=== PATIENT | male | born 1955 | race African-American/Black ===

== ENCOUNTER 2019-10-29 08:17 | Day surgery (SDC) | payer MEDICAID ==
[~2019-10-29] VITALS: Ht 175.3 cm; Wt 68.0 kg
[2019-10-29 09:16] LABS: BASOPHILS % 0.8 % (0.0-2.0); EOSINOPHILS % 2.2 % (0.0-5.0); HEMATOCRIT. 36.7 % (42.0-52.0); HEMOGLOBIN. 12.4 g/dL (14.0-18.0); LYMPHOCYTES % 26.7 % (20.0-50.0); MEAN CORPUSCULAR VOLUME 97.6 fL (80.0-94.0); MEAN PLATELET VOLUME 9.2 fl (7.4-10.4); MONOCYTES % 11.1 % (2.0-8.0); NEUTROPHILS % 59.2 % (40.0-76.0); PLATELET 130 x1000/uL (130-400); RED BLOOD CELL COUNT 3.77 mill/uL (4.7-6.1); RED CELL DISTRIBUTION WIDTH 13.3 % (11.6-14.6)
[2019-10-29 09:23] LABS: CHLORIDE 105 mEq/L (98-107)
[2019-10-29 09:29] LABS: INR 1.2; PARTIAL THROMBOPLASTIN TIME 30.2 sec (23.4-31.0); PROTHROMBIN TIME 12.3 sec (9.6-11.0)
[2019-10-29] MEDS ORDERED: MIDAZOLAM HCL 5 MG/5 ML VIAL ONE (10:24)
[2019-10-29] MEDS ORDERED: SUCCINYLCHOLINE CHLORIDE 200MG/10ML IV ONE (10:24)
[2019-10-29] MEDS ORDERED: PROPOFOL 200MG/20ML VIAL IV ONE (10:24)
[2019-10-29] MEDS ORDERED: SODIUM CHLORIDE 0.9% 1,000 ML IV ONE (11:04)
[2019-10-29] MEDS ORDERED: ONDANSETRON HCL 4MG/2ML INJ IV PRN (11:15)
[2019-10-29] MEDS ORDERED: PROP10TA10 PO (12:03)
[2019-10-29] MEDS ORDERED: HYDR25TA PO (12:03)
[2019-10-29] MEDS ORDERED: MULT-1203 PO (12:03)
[2019-10-29] MEDS ORDERED: CLOT15CR5 TP (12:03)
[2019-10-29] MEDS ORDERED: METF-414 PO (12:03)
[2019-10-29] MEDS ORDERED: ASPI-1497 PO (12:03)
[2019-10-29] MEDS ORDERED: ATEN-42 PO (12:03)
[2019-10-29] MEDS ORDERED: POTASSIUM CHLORIDE 20MEQ/PACKET PO NR (12:15)
[2019-10-29] MEDS: POTASSIUM CHLORIDE 20MEQ TABLET SR PO NR (12:22)
== END 2019-10-29 14:00 | disposition home or self-care (01) ==
LOC: OR 08:17
PROVIDERS: ATTEND Internal Medicine Gastroenterology
DX: K70.30 Alcoholic cirrhosis of liver without ascites (principal); I85.10 Secondary esophageal varices without bleeding; K31.89 Other diseases of stomach and duodenum; K29.50 Unspecified chronic gastritis without bleeding; I10 Essential (primary) hypertension; E11.9 Type 2 diabetes mellitus without complications; K44.9 Diaphragmatic hernia without obstruction or gangrene; F10.10 Alcohol abuse, uncomplicated; Z79.84 Long term (current) use of oral hypoglycemic drugs; Z79.899 Other long term (current) drug therapy; Z98.890 Other specified postprocedural states; Z79.82 Long term (current) use of aspirin
CPT/HCPCS: 36415; 43239; 43244; 80048; 85025; 85610; 85730; 88305; 93005; J0330; J2250; J2405; J2704; 88312; 88313

== ENCOUNTER → 2020-05-16 | Outpatient (CLI) | payer MEDICAID ==
[~2020-05-16] MED LIST: ASPI-1497 PO; ATEN-42 PO; CLOT15CR5 TP; HYDR25TA PO; METF-414 PO; MULT-1203 PO; PROP10TA10 PO
== END | disposition home or self-care (01) ==
LOC: LAB 07:30
PROVIDERS: ATTEND Internal Medicine Gastroenterology
DX: Z01.812 Encounter for preprocedural laboratory examination (principal); Z20.828 Contact with and (suspected) exposure to other viral communicable diseases
CPT/HCPCS: C9803; U0003

== ENCOUNTER → 2020-05-19 | Day surgery (SDC) | payer MEDICAID ==
[~2020-05-19] VITALS: Ht 175.3 cm; Wt 69.4 kg
[~2020-05-19] MED LIST changes: +LACTATED RINGERS 1,000 ML IV SCH; +MIDAZOLAM HCL 5 MG/5 ML VIAL ONE; +PROPOFOL 200MG/20ML VIAL IV ONE; +SUCCINYLCHOLINE CHLORIDE 200MG/10ML IV ONE
[2020-05-19 09:40] LABS: BASOPHILS % 1.2 % (0.0-2.0); HEMATOCRIT. 32.4 % (42.0-52.0); HEMOGLOBIN. 11.3 g/dL (14.0-18.0); LYMPHOCYTES % 19.4 % (20.0-50.0); MEAN CORPUSCULAR HEMOGLOBIN 34.7 pg (28.0-32.0); MEAN CORPUSCULAR VOLUME 100.1 fL (80.0-94.0); MEAN PLATELET VOLUME 9.7 fl (7.4-10.4); MONOCYTES % 12.1 % (2.0-8.0); NEUTROPHILS % 63.3 % (40.0-76.0); PLATELET 134 x1000/uL (130-400); RED BLOOD CELL COUNT 3.24 mill/uL (4.7-6.1); RED CELL DISTRIBUTION WIDTH 13.3 % (11.6-14.6)
[2020-05-19 09:49] LABS: CHLORIDE 106 mEq/L (98-107)
[2020-05-19 09:51] LABS: INR 1.4; PARTIAL THROMBOPLASTIN TIME 33.1 sec (23.4-31.0); PROTHROMBIN TIME 14.5 sec (9.6-11.0)
== END | disposition home or self-care (01) ==
LOC: OR 08:13
PROVIDERS: ATTEND Internal Medicine Gastroenterology
DX: I85.00 Esophageal varices without bleeding (principal); K70.30 Alcoholic cirrhosis of liver without ascites; K44.9 Diaphragmatic hernia without obstruction or gangrene; I10 Essential (primary) hypertension; E11.9 Type 2 diabetes mellitus without complications; K31.9 Disease of stomach and duodenum, unspecified; F10.10 Alcohol abuse, uncomplicated; Z79.84 Long term (current) use of oral hypoglycemic drugs; Z79.899 Other long term (current) drug therapy; Z98.890 Other specified postprocedural states; Z79.82 Long term (current) use of aspirin
CPT/HCPCS: 36415; 43244; 80048; 82962; 85025; 85610; 85730; 93005; J0330; J2250; J2704

== ENCOUNTER → 2020-06-13 | Outpatient (CLI) | payer MEDICAID ==
[~2020-06-13] MED LIST changes: -ATEN-42 PO; -LACTATED RINGERS 1,000 ML IV SCH; -MIDAZOLAM HCL 5 MG/5 ML VIAL ONE; -PROPOFOL 200MG/20ML VIAL IV ONE; -SUCCINYLCHOLINE CHLORIDE 200MG/10ML IV ONE
== END | disposition home or self-care (01) ==
LOC: LAB 14:48
PROVIDERS: ATTEND Internal Medicine Gastroenterology
DX: Z01.812 Encounter for preprocedural laboratory examination (principal); Z20.828 Contact with and (suspected) exposure to other viral communicable diseases
CPT/HCPCS: C9803; U0003

== ENCOUNTER → 2020-08-31 | Outpatient (CLI) | payer MEDICAID ==
[~2020-08-31] MED LIST changes: -HYDR25TA PO; -PROP10TA10 PO
== END | disposition home or self-care (01) ==
LOC: LAB 09:47
PROVIDERS: ATTEND Internal Medicine Gastroenterology
DX: Z01.812 Encounter for preprocedural laboratory examination (principal); Z20.828 Contact with and (suspected) exposure to other viral communicable diseases
CPT/HCPCS: 87426

== ENCOUNTER → 2020-09-08 | Day surgery (SDC) | payer MEDICAID ==
[~2020-09-08] VITALS: Ht 175.3 cm; Wt 69.9 kg
[~2020-09-08] MED LIST changes: +FURO-152 PO; +HYDRALAZINE 20MG/ML VIAL IV NR; +HYDROMORPHONE HCL/PF 2MG/ML CPJ IV PRN; +LABETALOL 5MG/ML SYR 20 MG/4 ML SYRINGE IV PRN; +LACTATED RINGERS 1,000 ML IV SCH; +LIDOCAINE HCL/PF 1% 10 MG/ML 5ML VIAL ONE; +MAGN400C PO; +MEPERIDINE HCL/PF 25MG/ML CPJ IV PRN; +ONDANSETRON HCL 4MG/2ML INJ IV PRN; +PROP10TA10 PO; +PROPOFOL 200MG/20ML VIAL IV ONE; +SPIR50TA5 PO
[2020-09-08 10:07] LABS: BASOPHILS % 1.2 % (0.0-2.0); EOSINOPHILS % 3.5 % (0.0-5.0); HEMATOCRIT. 34.5 % (42.0-52.0); HEMOGLOBIN. 11.7 g/dL (14.0-18.0); LYMPHOCYTES % 16.2 % (20.0-50.0); MEAN CORPUSCULAR HEMOGLOBIN 33.1 pg (28.0-32.0); MEAN CORPUSCULAR VOLUME 97.6 fL (80.0-94.0); MEAN PLATELET VOLUME 8.4 fl (7.4-10.4); MONOCYTES % 10.4 % (2.0-8.0); NEUTROPHILS % 68.7 % (40.0-76.0); PLATELET 165 x1000/uL (130-400); RED BLOOD CELL COUNT 3.53 mill/uL (4.7-6.1); RED CELL DISTRIBUTION WIDTH 13.7 % (11.6-14.6)
[2020-09-08 10:26] LABS: CHLORIDE 107 mEq/L (98-107)
[2020-09-08 10:28] LABS: INR 1.3; PARTIAL THROMBOPLASTIN TIME 34.2 sec (23.4-31.0); PROTHROMBIN TIME 13.5 sec (9.6-11.0)
== END | disposition home or self-care (01) ==
LOC: OR 08:37
PROVIDERS: ATTEND Internal Medicine Gastroenterology
DX: I85.00 Esophageal varices without bleeding (principal); K70.30 Alcoholic cirrhosis of liver without ascites; K76.6 Portal hypertension; K44.9 Diaphragmatic hernia without obstruction or gangrene; K29.50 Unspecified chronic gastritis without bleeding; E11.9 Type 2 diabetes mellitus without complications; K31.89 Other diseases of stomach and duodenum; D64.9 Anemia, unspecified; Z79.82 Long term (current) use of aspirin; Z79.84 Long term (current) use of oral hypoglycemic drugs; Z79.899 Other long term (current) drug therapy; Z98.890 Other specified postprocedural states; Z82.49 Family history of ischemic heart disease and other diseases of the circulatory system
CPT/HCPCS: 36415; 43239; 43244; 80048; 82962; 85025; 85610; 85730; 93005; J0360; J2704; J3490; 88305

== ENCOUNTER → 2020-09-08 | Outpatient (CLI) | payer MEDICAID ==
[~2020-09-08] MED LIST changes: -HYDRALAZINE 20MG/ML VIAL IV NR; -HYDROMORPHONE HCL/PF 2MG/ML CPJ IV PRN; -LABETALOL 5MG/ML SYR 20 MG/4 ML SYRINGE IV PRN; -LACTATED RINGERS 1,000 ML IV SCH; -LIDOCAINE HCL/PF 1% 10 MG/ML 5ML VIAL ONE; -MEPERIDINE HCL/PF 25MG/ML CPJ IV PRN; -ONDANSETRON HCL 4MG/2ML INJ IV PRN; -PROPOFOL 200MG/20ML VIAL IV ONE
== END | disposition home or self-care (01) ==
LOC: LAB 07:37
PROVIDERS: ATTEND Internal Medicine Gastroenterology
DX: Z01.812 Encounter for preprocedural laboratory examination (principal); Z20.828 Contact with and (suspected) exposure to other viral communicable diseases
CPT/HCPCS: 87426

== ENCOUNTER → 2020-12-14 | Outpatient (CLI) | payer MEDICAID ==
[~2020-12-14] MED LIST changes: +CLOT21CR VG; +LACT10SO3 MT
== END | disposition home or self-care (01) ==
LOC: LAB 08:59
PROVIDERS: ATTEND Internal Medicine Gastroenterology
DX: Z01.812 Encounter for preprocedural laboratory examination (principal); Z20.822 Contact with and (suspected) exposure to COVID-19
CPT/HCPCS: 87426

== ENCOUNTER → 2020-12-15 | Day surgery (SDC) | payer MEDICAID ==
[~2020-12-15] VITALS: Ht 175.3 cm; Wt 69.9 kg
[~2020-12-15] MED LIST changes: +HYDROMORPHONE HCL/PF 2MG/ML CPJ IV PRN; +MEPERIDINE HCL/PF 25MG/ML CPJ IV PRN; +MORPHINE SULFATE 2 MG/ML CPJ (NOT FOR IM USE) IV PRN; +ONDANSETRON HCL 4MG/2ML INJ IV PRN; +PROPOFOL 200MG/20ML VIAL IV ONE; +SODIUM CHLORIDE 0.9% 1,000 ML IV ONE
== END | disposition home or self-care (01) ==
LOC: OR 10:21
PROVIDERS: ATTEND Internal Medicine Gastroenterology
DX: I85.00 Esophageal varices without bleeding (principal); K70.30 Alcoholic cirrhosis of liver without ascites; K44.9 Diaphragmatic hernia without obstruction or gangrene; K29.60 Other gastritis without bleeding; I10 Essential (primary) hypertension; E11.9 Type 2 diabetes mellitus without complications; K31.89 Other diseases of stomach and duodenum; Z79.899 Other long term (current) drug therapy; Z98.890 Other specified postprocedural states; Z79.82 Long term (current) use of aspirin; Z79.84 Long term (current) use of oral hypoglycemic drugs; Z82.49 Family history of ischemic heart disease and other diseases of the circulatory system
CPT/HCPCS: 43244; 82962; 93005; J2704

== ENCOUNTER 2022-12-04 08:37 | Inpatient (IN) | payer MEDICARE, MEDICAID ==
[~2022-12-04] VITALS: Ht 175.3 cm; Wt 46.5 kg
[~2022-12-04 08:37] MED LIST changes: -CLOT21CR VG; -HYDROMORPHONE HCL/PF 2MG/ML CPJ IV PRN; -MEPERIDINE HCL/PF 25MG/ML CPJ IV PRN; -MORPHINE SULFATE 2 MG/ML CPJ (NOT FOR IM USE) IV PRN; -ONDANSETRON HCL 4MG/2ML INJ IV PRN; -PROPOFOL 200MG/20ML VIAL IV ONE; -SODIUM CHLORIDE 0.9% 1,000 ML IV ONE
[2022-12-04] MEDS ORDERED: SODIUM CHLORIDE 0.9% 1,000 ML IV ONE (09:15)
[2022-12-04 10:35] LABS: HEMATOCRIT. 30.3 % (42.0-52.0); HEMOGLOBIN. 9.7 g/dL (14.0-18.0); MEAN CORPUSCULAR HEMOGLOBIN 30.4 pg (28.0-32.0); MEAN CORPUSCULAR VOLUME 94.5 fL (80.0-94.0); PLATELET 590 x1000/uL (130-400)
[2022-12-04 10:37] LABS: CHLORIDE 99 mEq/L (98-107)
[2022-12-04 10:56] LABS: INR 1.2; PARTIAL THROMBOPLASTIN TIME 40.7 sec (23.4-31.0); PROTHROMBIN TIME 12.4 sec (9.6-11.0)
[2022-12-04 11:37] LABS: CLARITY URINE CLOUDY (CLEAR); COLOR URINE YELLOW (YELLOW); KETONES URINE TRACE (NEGATIVE); LEUKOCYTE ESTERASE URINE 2+ (NEGATIVE); NITRITE URINE NEGATIVE (NEGATIVE); OCCULT BLOOD URINE 2+ (NEGATIVE); PROTEIN URINE 1+ (NEGATIVE); SPECIFIC GRAVITY URINE 1.021 (1.005-1.030); UROBILINOGEN URINE 0.2 E.U./dL (0.2-1.0)
[2022-12-04 11:53] LABS: PLATELET ESTIMATE INCREASED
[2022-12-04] MEDS ORDERED: CEFTRIAXONE 1GM PREMIX 50 ML IV ONE (13:00)
[2022-12-04] MEDS ORDERED: GUAIFENESIN 200MG/10ML SUGAR FREE UDC PO PRN (16:00)
[2022-12-04] MEDS ORDERED: IPRATROPIUM/ALBUTEROL 0.5-3(2.5)MG/3ML NEB NEB PRN (16:00)
[2022-12-04] MEDS ORDERED: SODIUM POLYSTYRENE SULFONATE 15 G/60 ML BOT PO NR (16:00)
[2022-12-04] MEDS ORDERED: MAGNESIUM/ALUMINUM HYDROXIDE/SIMETHICONE 30ML UDC PO PRN (16:00)
[2022-12-04] MEDS ORDERED: ONDANSETRON HCL 4MG/2ML INJ IV PRN (16:00)
[2022-12-04] MEDS ORDERED: PANTOPRAZOLE 80 MG in SODIUM CHLORIDE 0.9% 100 ML IV SCH ×2 (16:00→16:30)
[2022-12-04] MEDS ORDERED: DOCUSATE SODIUM 100MG CAPSULE PO PRN (16:00)
[2022-12-04] MEDS ORDERED: CLONIDINE 0.1MG TABLET PO PRN (16:00)
[2022-12-04] MEDS ORDERED: LEVOFLOXACIN 500MG PREMIX 100 ML IV SCH (16:00)
[2022-12-04] MEDS ORDERED: ACETAMINOPHEN 325MG TABLET PO PRN ×2 (16:00)
[2022-12-04] MEDS ORDERED: DEXTROSE 50% WATER 50ML SYRINGE IV PRN (16:00)
[2022-12-04 16:40] VITALS: BP 141/91
[2022-12-04] MEDS: BLOOD SUGAR DIAGNOSTIC STRIP TEST SCH ×2 (16:54→20:52)
[2022-12-04] MEDS ORDERED: DEXT 5%/0.9% NACL 1,000 ML IV ONE (18:00)
[2022-12-04] MEDS: DEXT 5%/LACTATED RINGERS 1,000 ML IV SCH (18:20)
[2022-12-04] MEDS: INSULIN LISPRO 100 UNITS/ML SUBCUT SCH ×2 (18:23→20:51)
[2022-12-04] MEDS: SULFAMETHOXAZOLE/TRIMETHOPRIM 800/160MG TABLET PO SCH (18:24)
[2022-12-04] MEDS ORDERED: TACR5CAP PO (18:40)
[2022-12-04] MEDS ORDERED: PANT40TA51 PO (18:40)
[2022-12-04] MEDS ORDERED: AMIO100T4 PO (18:40)
[2022-12-04] MEDS ORDERED: APIX5TAB PO (18:40)
[2022-12-04] MEDS ORDERED: DILT60TA35 PO (18:40)
[2022-12-04] MEDS ORDERED: TAMS-11 PO (18:40)
[2022-12-04] MEDS ORDERED: TRAZ-251 PO (18:40)
[2022-12-04] MEDS ORDERED: ERGO80009 PO (18:40)
[2022-12-04] MEDS ORDERED: TACR1CAP PO (18:40)
[2022-12-04] MEDS ORDERED: PRED5TAB PO (18:40)
[2022-12-04] MEDS ORDERED: OCTREOTIDE 1,000 MCG in SODIUM CHLORIDE 0.9% 98 ML IV SCH (20:00)
[2022-12-04 20:43] VITALS: BP 110/73
[2022-12-04] MEDS: PANTOPRAZOLE SODIUM 40 MG/VIAL IV SCH (20:50)
[2022-12-04] MEDS: MYCOPHENOLATE MOFETIL 500MG TABLET PO SCH (20:50)
[2022-12-04] MEDS ORDERED: ZOLPIDEM TARTRATE 5MG TABLET PO PRN (21:00)
[2022-12-04 21:59] LABS: ETHANOL BLOOD < 10 mg/dL; HDL CHOLESTEROL 38 mg/dL (40-59); LDL CHOLESTEROL 61 mg/dL (5-100); T4 FREE 0.96 ng/dL (0.76-1.46); TOTAL IRON BINDING CAPACITY 143 ug/dL (250-450)
[2022-12-04] MEDS: OCTREOTIDE 1,000 MCG in SODIUM CHLORIDE 0.9% 98 ML IV SCH (22:18)
[2022-12-04] MEDS: TACROLIMUS 5MG CAPSULE PO SCH (22:18)
[2022-12-04 22:27] LABS: VITAMIN B12 SERUM > 2000.0 pg/mL (211-911)
[2022-12-04] MEDS ORDERED: SODIUM CHLORIDE 0.9% 1000ML BAG (SEPSIS BOLUS) IV NR (23:00)
[2022-12-05] VITALS (38 sets, daily range): BP systolic 90–131; BP diastolic 61–78
[2022-12-05] MEDS: BLOOD SUGAR DIAGNOSTIC STRIP TEST SCH ×4 (06:41→20:51)
[2022-12-05 07:41] LABS: HEMATOCRIT. 21.3 % (42.0-52.0); HEMOGLOBIN. 7.1 g/dL (14.0-18.0); MEAN CORPUSCULAR VOLUME 92.8 fL (80.0-94.0); PLATELET 418 x1000/uL (130-400); RED CELL DISTRIBUTION WIDTH 14.8 % (11.6-14.6)
[2022-12-05 07:47] LABS: INR 1.2; PROTHROMBIN TIME 12.8 sec (9.6-11.0)
[2022-12-05] MEDS: PANTOPRAZOLE SODIUM 40 MG/VIAL IV SCH ×2 (08:08→20:51)
[2022-12-05] MEDS: MYCOPHENOLATE MOFETIL 500MG TABLET PO SCH ×2 (08:08→21:38)
[2022-12-05] MEDS: PREDNISONE 5MG TABLET PO SCH (08:08)
[2022-12-05] MEDS: DEXT 5%/LACTATED RINGERS 1,000 ML IV SCH ×2 (08:09→18:50)
[2022-12-05] MEDS: TACROLIMUS 1MG CAPSULE PO SCH (08:09)
[2022-12-05] MEDS: INSULIN LISPRO 100 UNITS/ML SUBCUT SCH ×4 (08:09→20:51)
[2022-12-05 08:18] LABS: CHLORIDE 106 mEq/L (98-107)
[2022-12-05 08:31] LABS: PHOSPHORUS 2.8 mg/dL (2.5-4.9)
[2022-12-05] MEDS ORDERED: VALGANCICLOVIR HYDROCHLORIDE 450MG TABLET PO SCH (09:00)
[2022-12-05 09:04] LABS: PLATELET ESTIMATE INCREASED
[2022-12-05] MEDS: MENTHOL/LANOLIN/CALAMINE/ZN OX OINT 71GM TOP SCH ×2 (12:20→18:50)
[2022-12-05] MEDS ORDERED: AMIODARONE HCL 200 MG TABLET PO SCH (12:45)
[2022-12-05] MEDS ORDERED: DILTIAZEM HCL 120MG CAPSULE ER 24HR PO SCH (13:00)
[2022-12-05] MEDS ORDERED: CEFTRIAXONE 1,000 MG in DEXTROSE 5% WATER 50 ML IV SCH (13:00)
[2022-12-05] MEDS ORDERED: METOPROLOL TARTRATE 5MG/5ML VIAL IV PRN (13:00)
[2022-12-05] MEDS ORDERED: IPRATROPIUM BROMIDE (0.02%) 0.5MG/2.5ML NEB HHN PRN (13:00)
[2022-12-05] MEDS ORDERED: ALBUTEROL (0.083%) 2.5MG/3ML NEB HHN PRN (13:00)
[2022-12-05] MEDS ORDERED: SODIUM CHLORIDE 0.9% 250 ML IV SCH (13:10)
[2022-12-05] MEDS ORDERED: DIGOXIN 500MCG/2ML AMP IV PRN (13:15)
[2022-12-05] MEDS ORDERED: SODIUM CHLORIDE 0.9% 500 ML IV NR (13:30)
[2022-12-05] MEDS ORDERED: DIGOXIN 500MCG/2ML AMP IV NR (13:30)
[2022-12-05] MEDS ORDERED: ADENOSINE 3 MG/ML 2ML VIAL IV NR ×3 (13:45→13:50)
[2022-12-05] MEDS ORDERED: DILTIAZEM HCL 60MG TABLET PO SCH (14:00)
[2022-12-05] MEDS ORDERED: DILTIAZEM HCL 30MG TABLET PO SCH (14:00)
[2022-12-05] MEDS ORDERED: LEVOFLOXACIN 500MG PREMIX 100 ML IV SCH (14:00)
[2022-12-05] MEDS ORDERED: AMIODARONE HCL 900 MG in DEXT 5% WATER 482 ML IV PRN (15:30)
[2022-12-05] MEDS ORDERED: AMIODARONE HCL 150 MG in DEXT 5% WATER 100 ML IV NR (15:30)
[2022-12-05] MEDS: OCTREOTIDE 1,000 MCG in SODIUM CHLORIDE 0.9% 98 ML IV SCH (17:00)
[2022-12-05] MEDS ORDERED: ATROPINE SULFATE 1MG/ML VIAL IV PRN (18:30)
[2022-12-05] MEDS ORDERED: DOPAMINE 800MG PREMIX (DOUBLE) 250 ML IV PRN (18:30)
[2022-12-05] MEDS: TACROLIMUS 5MG CAPSULE PO SCH (20:50)
[2022-12-05] MEDS: METRONIDAZOLE 500 MG PREMIX 100 ML IV SCH (20:51)
[2022-12-05 21:10] LABS: FOLIC ACID (FOLATE) SERUM > 20.00 ng/mL (>5.38)
[2022-12-06] VITALS (52 sets, daily range): BP systolic 115–178; BP diastolic 66–117
[2022-12-06] MEDS ORDERED: ATROPINE SULFATE 1MG/10ML SYR IV PRN (04:32)
[2022-12-06 05:37] LABS: HEMATOCRIT. 24.6 % (42.0-52.0); HEMOGLOBIN. 8.4 g/dL (14.0-18.0); MEAN CORPUSCULAR HEMOGLOBIN 30.3 pg (28.0-32.0); MEAN CORPUSCULAR VOLUME 88.1 fL (80.0-94.0); MEAN PLATELET VOLUME 6.9 fl (7.4-10.4); PLATELET 316 x1000/uL (130-400); RED BLOOD CELL COUNT 2.79 mill/uL (4.7-6.1); RED CELL DISTRIBUTION WIDTH 16.4 % (11.6-14.6)
[2022-12-06 05:46] LABS: CHLORIDE 108 mEq/L (98-107)
[2022-12-06] MEDS: OCTREOTIDE 1,000 MCG in SODIUM CHLORIDE 0.9% 98 ML IV SCH (06:47)
[2022-12-06] MEDS: BLOOD SUGAR DIAGNOSTIC STRIP TEST SCH ×4 (07:50→21:04)
[2022-12-06] MEDS ORDERED: LIDOCAINE HCL 1% 30ML VIAL (10MG/ML) ONE (07:58)
[2022-12-06] MEDS: INSULIN LISPRO 100 UNITS/ML SUBCUT SCH ×4 (08:20→21:08)
[2022-12-06] MEDS: PANTOPRAZOLE SODIUM 40 MG/VIAL IV SCH ×2 (09:28→20:56)
[2022-12-06] MEDS: METRONIDAZOLE 500 MG PREMIX 100 ML IV SCH ×2 (09:28→20:56)
[2022-12-06] MEDS: CEFEPIME 1,000 MG in DEXTROSE 5% WATER 50 ML IV SCH (09:28)
[2022-12-06] MEDS: TACROLIMUS 1MG CAPSULE PO SCH (09:29)
[2022-12-06] MEDS: MYCOPHENOLATE MOFETIL 500MG TABLET PO SCH ×2 (09:29→20:57)
[2022-12-06] MEDS: DEXT 5%/LACTATED RINGERS 1,000 ML IV SCH ×2 (09:29→21:03)
[2022-12-06] MEDS: PREDNISONE 5MG TABLET PO SCH (09:29)
[2022-12-06] MEDS: MENTHOL/LANOLIN/CALAMINE/ZN OX OINT 71GM TOP SCH ×2 (09:30→18:30)
[2022-12-06 10:28] LABS: PLATELET ESTIMATE NORMAL
[2022-12-06 12:20] LABS: HEMATOCRIT 23.2 % (42.0-52.0); HEMOGLOBIN 7.7 g/dL (14.0-18.0)
[2022-12-06] MEDS: SULFAMETHOXAZOLE/TRIMETHOPRIM 800/160MG TABLET PO SCH (18:29)
[2022-12-06 20:52] LABS: HEMATOCRIT 24.9 % (42.0-52.0); HEMOGLOBIN 8.4 g/dL (14.0-18.0)
[2022-12-06] MEDS: TACROLIMUS 5MG CAPSULE PO SCH (20:56)
[2022-12-07] VITALS (36 sets, daily range): BP systolic 125–174; BP diastolic 74–104
[2022-12-07 01:59] LABS: HEMATOCRIT 23.5 % (42.0-52.0); HEMOGLOBIN 8.2 g/dL (14.0-18.0)
[2022-12-07] MEDS: OCTREOTIDE 1,000 MCG in SODIUM CHLORIDE 0.9% 98 ML IV SCH (03:15)
[2022-12-07 05:39] LABS: HEMOGLOBIN 8.6 g/dL (14.0-18.0)
[2022-12-07] MEDS: BLOOD SUGAR DIAGNOSTIC STRIP TEST SCH ×4 (07:26→21:00)
[2022-12-07] MEDS: INSULIN LISPRO 100 UNITS/ML SUBCUT SCH ×4 (08:20→21:18)
[2022-12-07] MEDS: MENTHOL/LANOLIN/CALAMINE/ZN OX OINT 71GM TOP SCH ×2 (09:00→17:52)
[2022-12-07] MEDS: MYCOPHENOLATE MOFETIL 500MG TABLET PO SCH ×2 (09:12→21:18)
[2022-12-07] MEDS: TACROLIMUS 1MG CAPSULE PO SCH (09:12)
[2022-12-07] MEDS: PANTOPRAZOLE SODIUM 40 MG/VIAL IV SCH ×2 (09:13→21:18)
[2022-12-07] MEDS: CEFEPIME 1,000 MG in DEXTROSE 5% WATER 50 ML IV SCH (09:13)
[2022-12-07] MEDS: PREDNISONE 5MG TABLET PO SCH (09:14)
[2022-12-07] MEDS: METRONIDAZOLE 500 MG PREMIX 100 ML IV SCH ×2 (09:14→21:17)
[2022-12-07 17:07] LABS: HEMATOCRIT. 28.2 % (42.0-52.0); HEMOGLOBIN. 9.4 g/dL (14.0-18.0); MEAN CORPUSCULAR HEMOGLOBIN 29.4 pg (28.0-32.0); MEAN CORPUSCULAR VOLUME 88.4 fL (80.0-94.0); MEAN PLATELET VOLUME 6.6 fl (7.4-10.4); PLATELET 377 x1000/uL (130-400); RED BLOOD CELL COUNT 3.19 mill/uL (4.7-6.1); RED CELL DISTRIBUTION WIDTH 16.5 % (11.6-14.6)
[2022-12-07 17:15] LABS: CHLORIDE 106 mEq/L (98-107)
[2022-12-07 17:49] LABS: PLATELET ESTIMATE NORMAL
[2022-12-07] MEDS: TACROLIMUS 5MG CAPSULE PO SCH (19:25)
[2022-12-07] MEDS: DEXT 5%/LACTATED RINGERS 1,000 ML IV SCH (19:25)
[2022-12-08] VITALS: BP 135/85
[2022-12-08] MEDS: OCTREOTIDE 1,000 MCG in SODIUM CHLORIDE 0.9% 98 ML IV SCH (02:04)
[2022-12-08 04:00] VITALS: BP 132/48
[2022-12-08 06:27] LABS: HEMATOCRIT. 25.2 % (42.0-52.0); HEMOGLOBIN. 8.4 g/dL (14.0-18.0); MEAN CORPUSCULAR HEMOGLOBIN 29.6 pg (28.0-32.0); MEAN CORPUSCULAR VOLUME 88.1 fL (80.0-94.0); MEAN PLATELET VOLUME 6.8 fl (7.4-10.4); PLATELET 335 x1000/uL (130-400); RED BLOOD CELL COUNT 2.86 mill/uL (4.7-6.1)
[2022-12-08 07:29] LABS: CHLORIDE 106 mEq/L (98-107)
[2022-12-08] MEDS: BLOOD SUGAR DIAGNOSTIC STRIP TEST SCH ×4 (07:29→21:38)
[2022-12-08] MEDS: INSULIN LISPRO 100 UNITS/ML SUBCUT SCH ×4 (07:30→21:21)
[2022-12-08 08:00] VITALS: BP 148/82
[2022-12-08] MEDS: METRONIDAZOLE 500 MG PREMIX 100 ML IV SCH ×2 (09:11→21:20)
[2022-12-08] MEDS: CEFEPIME 1,000 MG in DEXTROSE 5% WATER 50 ML IV SCH (09:11)
[2022-12-08] MEDS: PREDNISONE 5MG TABLET PO SCH (09:14)
[2022-12-08] MEDS: MYCOPHENOLATE MOFETIL 500MG TABLET PO SCH ×2 (09:14→21:19)
[2022-12-08] MEDS: MENTHOL/LANOLIN/CALAMINE/ZN OX OINT 71GM TOP SCH ×2 (09:16→17:17)
[2022-12-08] MEDS: TACROLIMUS 1MG CAPSULE PO SCH (09:16)
[2022-12-08] MEDS: PANTOPRAZOLE SODIUM 40 MG/VIAL IV SCH ×2 (09:16→21:20)
[2022-12-08 10:27] LABS: PLATELET ESTIMATE NORMAL
[2022-12-08 12:00] VITALS: BP 129/81
[2022-12-08 16:00] VITALS: BP 129/79
[2022-12-08] MEDS ORDERED: METOPROLOL TARTRATE 5MG/5ML VIAL IV PRN (16:30)
[2022-12-08 20:00] VITALS: BP 133/90
[2022-12-08] MEDS: TACROLIMUS 5MG CAPSULE PO SCH (21:19)
[2022-12-09] VITALS: BP 143/85
[2022-12-09] MEDS: OCTREOTIDE 1,000 MCG in SODIUM CHLORIDE 0.9% 98 ML IV SCH ×2 (02:04→21:54)
[2022-12-09] MEDS: DEXT 5%/LACTATED RINGERS 1,000 ML IV SCH ×3 (02:04→16:16)
[2022-12-09 02:45] LABS: BASOPHILS % 0.3 % (0.0-2.0); EOSINOPHILS % 0.4 % (0.0-5.0); HEMATOCRIT. 26.3 % (42.0-52.0); HEMOGLOBIN. 8.8 g/dL (14.0-18.0); LYMPHOCYTES % 16.9 % (20.0-50.0); MEAN CORPUSCULAR HEMOGLOBIN 29.4 pg (28.0-32.0); MEAN CORPUSCULAR VOLUME 87.9 fL (80.0-94.0); MEAN PLATELET VOLUME 6.3 fl (7.4-10.4); MONOCYTES % 9.7 % (2.0-8.0); NEUTROPHILS % 72.7 % (40.0-76.0); PLATELET 350 x1000/uL (130-400); RED CELL DISTRIBUTION WIDTH 16.2 % (11.6-14.6)
[2022-12-09 02:53] LABS: CHLORIDE 109 mEq/L (98-107)
[2022-12-09 04:00] VITALS: BP 125/67
[2022-12-09] MEDS: BLOOD SUGAR DIAGNOSTIC STRIP TEST SCH ×4 (07:13→20:59)
[2022-12-09] MEDS: INSULIN LISPRO 100 UNITS/ML SUBCUT SCH ×4 (07:14→20:58)
[2022-12-09 08:10] VITALS: BP 117/89
[2022-12-09] MEDS: METRONIDAZOLE 500 MG PREMIX 100 ML IV SCH ×2 (08:42→20:56)
[2022-12-09] MEDS: PANTOPRAZOLE SODIUM 40 MG/VIAL IV SCH ×2 (08:43→20:57)
[2022-12-09] MEDS: CEFEPIME 1,000 MG in DEXTROSE 5% WATER 50 ML IV SCH (08:43)
[2022-12-09] MEDS: TACROLIMUS 1MG CAPSULE PO SCH (08:44)
[2022-12-09] MEDS: MYCOPHENOLATE MOFETIL 500MG TABLET PO SCH ×2 (08:45→21:52)
[2022-12-09] MEDS: PREDNISONE 5MG TABLET PO SCH (08:45)
[2022-12-09] MEDS: MENTHOL/LANOLIN/CALAMINE/ZN OX OINT 71GM TOP SCH ×2 (08:45→17:38)
[2022-12-09 11:43] VITALS: BP 133/86
[2022-12-09] MEDS ORDERED: SORBITOL 70% SOLN 30ML PO SCH (14:00)
[2022-12-09] MEDS: BISACODYL 5MG TABLET PO SCH ×2 (14:18→17:37)
[2022-12-09] MEDS: METOCLOPRAMIDE HCL 10MG TABLET PO SCH ×2 (14:19→17:37)
[2022-12-09 15:40] VITALS: BP 138/83
[2022-12-09] MEDS: SULFAMETHOXAZOLE/TRIMETHOPRIM 800/160MG TABLET PO SCH (17:37)
[2022-12-09] MEDS: SORBITOL 70% SOLN 30ML PO SCH ×2 (17:38→21:52)
[2022-12-09 20:00] VITALS: BP 125/85
[2022-12-09] MEDS: TACROLIMUS 5MG CAPSULE PO SCH (20:57)
[2022-12-09] MEDS ORDERED: METOCLOPRAMIDE HCL 10MG/2ML VIAL IV NR (21:30)
[2022-12-09] MEDS ORDERED: BISACODYL 5MG TABLET PO NR (21:30)
[2022-12-10] VITALS: BP 98/74
[2022-12-10] MEDS: SODIUM CHLORIDE 0.9% 1,000 ML IV SCH ×2 (02:40→14:57)
[2022-12-10 03:07] LABS: HEMATOCRIT. 37.2 % (42.0-52.0); HEMOGLOBIN. 12.4 g/dL (14.0-18.0); MEAN CORPUSCULAR HEMOGLOBIN 30.1 pg (28.0-32.0); MEAN CORPUSCULAR VOLUME 89.9 fL (80.0-94.0); MEAN PLATELET VOLUME 6.6 fl (7.4-10.4); PLATELET 365 x1000/uL (130-400); RED BLOOD CELL COUNT 4.14 mill/uL (4.7-6.1); RED CELL DISTRIBUTION WIDTH 16.8 % (11.6-14.6)
[2022-12-10 03:16] LABS: INR 1.2; PROTHROMBIN TIME 12.4 sec (9.6-11.0)
[2022-12-10 03:47] LABS: CHLORIDE 112 mEq/L (98-107)
[2022-12-10 04:00] VITALS: BP 136/89
[2022-12-10] MEDS: BLOOD SUGAR DIAGNOSTIC STRIP TEST SCH ×4 (07:40→20:51)
[2022-12-10] MEDS: INSULIN LISPRO 100 UNITS/ML SUBCUT SCH ×4 (08:10→20:51)
[2022-12-10 08:27] VITALS: BP 127/78
[2022-12-10] MEDS: MENTHOL/LANOLIN/CALAMINE/ZN OX OINT 71GM TOP SCH ×2 (09:00→17:25)
[2022-12-10 09:51] LABS: PLATELET ESTIMATE NORMAL
[2022-12-10] MEDS: CEFEPIME 1,000 MG in DEXTROSE 5% WATER 50 ML IV SCH ×2 (09:57→20:50)
[2022-12-10] MEDS: METRONIDAZOLE 500 MG PREMIX 100 ML IV SCH ×2 (09:58→20:51)
[2022-12-10] MEDS: PANTOPRAZOLE SODIUM 40 MG/VIAL IV SCH ×2 (10:07→20:50)
[2022-12-10] MEDS: TACROLIMUS 1MG CAPSULE PO SCH (10:57)
[2022-12-10] MEDS: PREDNISONE 5MG TABLET PO SCH (10:57)
[2022-12-10] MEDS: MYCOPHENOLATE MOFETIL 500MG TABLET PO SCH ×2 (10:57→20:50)
[2022-12-10] MEDS ORDERED: SIMETHICONE 40 MG/0.6 ML 15ML ONE (11:08)
[2022-12-10] MEDS ORDERED: PROPOFOL 200MG/20ML VIAL IV ONE (11:15)
[2022-12-10 15:15] VITALS: BP 144/92
[2022-12-10 20:00] VITALS: BP 113/77
[2022-12-10] MEDS: TACROLIMUS 5MG CAPSULE PO SCH (20:50)
[2022-12-11] VITALS: BP 139/79
[2022-12-11 04:00] VITALS: BP 142/84
[2022-12-11] MEDS: INSULIN LISPRO 100 UNITS/ML SUBCUT SCH ×4 (05:50→22:12)
[2022-12-11] MEDS: BLOOD SUGAR DIAGNOSTIC STRIP TEST SCH ×4 (05:50→21:00)
[2022-12-11 06:02] LABS: HEMATOCRIT. 25.4 % (42.0-52.0); HEMOGLOBIN. 8.5 g/dL (14.0-18.0); MEAN CORPUSCULAR HEMOGLOBIN 29.8 pg (28.0-32.0); MEAN CORPUSCULAR VOLUME 88.8 fL (80.0-94.0); MEAN PLATELET VOLUME 6.6 fl (7.4-10.4); PLATELET 288 x1000/uL (130-400); RED BLOOD CELL COUNT 2.86 mill/uL (4.7-6.1); RED CELL DISTRIBUTION WIDTH 16.6 % (11.6-14.6)
[2022-12-11 07:34] LABS: CHLORIDE 117 mEq/L (98-107)
[2022-12-11 08:00] VITALS: BP 150/88
[2022-12-11] MEDS: TACROLIMUS 1MG CAPSULE PO SCH (08:10)
[2022-12-11] MEDS: MYCOPHENOLATE MOFETIL 500MG TABLET PO SCH ×2 (08:10→22:11)
[2022-12-11] MEDS: PREDNISONE 5MG TABLET PO SCH (08:10)
[2022-12-11] MEDS: PANTOPRAZOLE SODIUM 40 MG/VIAL IV SCH ×2 (08:11→22:12)
[2022-12-11] MEDS: MENTHOL/LANOLIN/CALAMINE/ZN OX OINT 71GM TOP SCH ×2 (08:11→17:00)
[2022-12-11] MEDS: CEFEPIME 1,000 MG in DEXTROSE 5% WATER 50 ML IV SCH ×2 (08:35→22:12)
[2022-12-11 09:21] LABS: PLATELET ESTIMATE NORMAL
[2022-12-11 12:00] VITALS: BP 147/81
[2022-12-11 16:00] VITALS: BP 145/88
[2022-12-11 20:00] VITALS: BP 144/79
[2022-12-11] MEDS: TACROLIMUS 5MG CAPSULE PO SCH (22:12)
[2022-12-11] MEDS: ASPIRIN 81MG TABLET PO SCH (22:13)
[2022-12-12] VITALS: BP 136/85
[2022-12-12 04:00] VITALS: BP 153/82
[2022-12-12] MEDS: BLOOD SUGAR DIAGNOSTIC STRIP TEST SCH ×2 (06:23→12:40)
[2022-12-12] MEDS: INSULIN LISPRO 100 UNITS/ML SUBCUT SCH ×2 (06:23→13:10)
[2022-12-12 07:52] VITALS: BP 144/83
[2022-12-12] MEDS: ASPIRIN 81MG TABLET PO SCH (08:48)
[2022-12-12] MEDS: PREDNISONE 5MG TABLET PO SCH (08:48)
[2022-12-12] MEDS: TACROLIMUS 1MG CAPSULE PO SCH (08:48)
[2022-12-12] MEDS: MYCOPHENOLATE MOFETIL 500MG TABLET PO SCH (08:48)
[2022-12-12] MEDS: MENTHOL/LANOLIN/CALAMINE/ZN OX OINT 71GM TOP SCH (08:49)
[2022-12-12] MEDS: PANTOPRAZOLE SODIUM 40 MG/VIAL IV SCH (08:49)
[2022-12-12] MEDS: CEFEPIME 1,000 MG in DEXTROSE 5% WATER 50 ML IV SCH (08:49)
[2022-12-12 10:06] LABS: BASOPHILS % 0.4 % (0.0-2.0); EOSINOPHILS % 0.4 % (0.0-5.0); HEMATOCRIT. 30.3 % (42.0-52.0); HEMOGLOBIN. 10.3 g/dL (14.0-18.0); LYMPHOCYTES % 10.3 % (20.0-50.0); MEAN CORPUSCULAR VOLUME 88.4 fL (80.0-94.0); MEAN PLATELET VOLUME 6.8 fl (7.4-10.4); MONOCYTES % 7.8 % (2.0-8.0); NEUTROPHILS % 81.1 % (40.0-76.0); PLATELET 314 x1000/uL (130-400); RED BLOOD CELL COUNT 3.42 mill/uL (4.7-6.1); RED CELL DISTRIBUTION WIDTH 16.6 % (11.6-14.6)
[2022-12-12 10:33] LABS: CHLORIDE 109 mEq/L (98-107)
[2022-12-12] MEDS ORDERED: SUCR1TAB30 MT (10:41)
[2022-12-12] MEDS ORDERED: DIGO250A8 IV (10:41)
[2022-12-12] MEDS ORDERED: PANT40TA51 PO (10:41)
[2022-12-12 11:42] VITALS: BP 136/85
[2022-12-12 15:52] VITALS: BP 144/78
[2022-12-12 16:05] VITALS: BP 147/87
[2022-12-12] MEDS ORDERED: CEFEPIME 1GM PREMIX 50 ML IV SCH (21:00)
[2022-12-13] MEDS ORDERED: LIDOCAINE HCL 4% CREAM 76GM TUBE TP NR (08:00)
== END 2022-12-12 16:15 | disposition home or self-care (01) | DRG 871 ==
LOC: ER 08:56 → EDBEDREQ 13:09 → EDBEDREQTM 13:09 → SUPCPDRO 15:47 → 7WST 15:54 → CVICU 12-05 13:52 → 7WST 12-07 14:23
PROVIDERS: ADMIT Internal Medicine; ATTEND Internal Medicine
PROC: 30233N1 Transfusion of Nonautologous Red Blood Cells into Peripheral Vein, Percutaneous Approach (ICD-10-PCS; principal; 2022-12-05)
PROC: 02HV33Z Insertion of Infusion Device into Superior Vena Cava, Percutaneous Approach (ICD-10-PCS; 2022-12-06)
PROC: B548ZZA Ultrasonography of Superior Vena Cava, Guidance (ICD-10-PCS; 2022-12-06)
PROC: 0DB78ZX Excision of Stomach, Pylorus, Via Natural or Artificial Opening Endoscopic, Diagnostic (ICD-10-PCS; 2022-12-10)
PROC: 0DJD8ZZ Inspection of Lower Intestinal Tract, Via Natural or Artificial Opening Endoscopic (ICD-10-PCS; 2022-12-10)
DX: A41.9 Sepsis, unspecified organism (principal); G92.8 Other toxic encephalopathy; R65.21 Severe sepsis with septic shock; R57.8 Other shock; K29.61 Other gastritis with bleeding; I85.01 Esophageal varices with bleeding; E44.0 Moderate protein-calorie malnutrition; R64 Cachexia; E87.1 Hypo-osmolality and hyponatremia; D62 Acute posthemorrhagic anemia; E87.20 Acidosis, unspecified; N39.0 Urinary tract infection, site not specified; I47.1 Supraventricular tachycardia; K76.6 Portal hypertension; Z94.0 Kidney transplant status; Z94.4 Liver transplant status; E11.65 Type 2 diabetes mellitus with hyperglycemia; E87.5 Hyperkalemia; Z20.822 Contact with and (suspected) exposure to COVID-19; I10 Essential (primary) hypertension; B96.89 Other specified bacterial agents as the cause of diseases classified elsewhere; K70.30 Alcoholic cirrhosis of liver without ascites; M81.0 Age-related osteoporosis without current pathological fracture; B96.5 Pseudomonas (aeruginosa) (mallei) (pseudomallei) as the cause of diseases classified elsewhere; E86.1 Hypovolemia; K22.2 Esophageal obstruction; I48.0 Paroxysmal atrial fibrillation; I86.4 Gastric varices; F10.20 Alcohol dependence, uncomplicated; K31.9 Disease of stomach and duodenum, unspecified; K57.90 Diverticulosis of intestine, part unspecified, without perforation or abscess without bleeding; Z79.01 Long term (current) use of anticoagulants; Z79.4 Long term (current) use of insulin
CPT/HCPCS: 36415; 36573; 71045; 74176; 80048; 80053; 80061; 80197; 80320; 81003; 82040; 82533; 82607; 82728; 82746; 82962; 83036; 83540; 83550; 83605; 83735; 84100; 84134; 84145; 84439; 84443; 85014; 85018; 85025; 86850; 86900; 86920; 87077; 87186; 87426; 88305; 93005; 93306; 93970; 99285; A6261; C1725; C9113; J0153; J0282; J0461; J0692; J0696; J1160; J1815; J1956; J2354; J2405; J2704; J2765; J3490; J7030; J7050; J7060; J7507; J7512; J7517; J8597; P9016; G0480